=== PATIENT | male | born 1980 | race Caucasian/White ===

== ENCOUNTER 2018-03-18 10:43 | Day surgery (SDC) | payer OTHER ==
[2018-03-18] MEDS ORDERED: LIDOCAINE 4% SOLUTION 50 ML BTL (11:39)
[2018-03-18] MEDS ORDERED: MIDAZOLAM 1 MG/ML 2 ML INJ ×2 (13:23)
[2018-03-18] MEDS ORDERED: FENTAnyl 50 MCG/ML VIAL (13:23)
== END 2018-03-18 14:51 | disposition home or self-care (01) ==
LOC: GIL 10:43
DX: K29.70 Gastritis, unspecified, without bleeding (principal); K44.9 Diaphragmatic hernia without obstruction or gangrene
CPT/HCPCS: 43239; 88305; 88312; 88313